=== PATIENT | male | born 1950 | race Caucasian/White ===

== ENCOUNTER 2018-05-28 09:27 | Day surgery (SDC) | payer MEDICARE ==
[2018-05-24 13:04] VITALS: BMI 31.8
[2018-05-28] MEDS ORDERED: PROPOFOL 200 MG/20 ML VIAL ONE (12:51)
[2018-05-28] MEDS ORDERED: Lidocaine 1% PF 5 ML VIAL ONE (12:51)
[2018-05-28] MEDS ORDERED: Ondansetron HCl/PF 4 MG/2 ML Vial ONE (12:51)
[2018-05-28] MEDS ORDERED: Ketorolac Tromethamine 30 MG/ML VIAL ONE (12:51)
[2018-05-28] MEDS ORDERED: Betamet Acet/Betamet Na Ph 30 MG/5 ML VIAL ONE (12:59)
[2018-05-28] MEDS ORDERED: Bacitracin Zinc Ointment 30 gm TUBE ONE (12:59)
[2018-05-28] MEDS ORDERED: Bupivacaine PF 0.5% 30 ML VIAL ONE (12:59)
[2018-05-28] MEDS ORDERED: Propofol 500 MG/50 ML VIAL ONE (13:16)
[2018-05-28] MEDS ORDERED: Midazolam HCl 2 mg/2 ml Vial ONE (13:16)
[2018-05-28] MEDS ORDERED: Fentanyl 100 MCG/2 ML VIAL ONE (13:16)
--- NOTE | 2018-05-29 08:36 | OP ---
DATE OF PROCEDURE: 05/28/2018 PREOPERATIVE DIAGNOSIS: Left ring finger A1 james tenosynovitis with trigger finger, left ring fing er. POSTOPERATIVE DIAGNOSIS: Left ring finger A1 james tenosynovitis with trigger finger, left ring fin franki. FINDINGS: Very thick ____ over the flexor tendon to the ring finger, digitorum profundus and superfi cialis, and very thick A1 james. Minimal tenosynovitis. PROCEDURE PERFORMED: A1 james release, left ring finger. TOURNIQUET TIME: 11 minutes. ESTIMATED BLOOD LOSS: Less than 5 mL INJECTABLE: Yes, 3 mL of Celestone into the area around the tendon. COMPLICATIONS: None. INDICATIONS: The patient failed conservative treatment. ANESTHESIA: JENNIFER Hui, [place] Anesthesia with use of propofol and a total of 15 mL of metacarp ophalangeal joint palmar level block, 10 given before the surgery and 5 after, 0.5% Marcaine, no epin ephrine. DESCRIPTION OF PROCEDURE: Anesthesia given prior to prep and drape. Timeout was accomplished. The patient had the limb exsanguinated, tourniquet inflated to 250 mmHg pressure, and a zigzag incisi on outlined 1 cm long centered over the A1 james/palm MP joint flexion crease. This was carried to skin and subcutaneous tissue, identified neurovascular bundles on the radioulnar side and retracted f rom the center of the field. The very thick ____ over the tendon was released just proximal A1 pulle y. A1 james was visualized, released in the midline with a [place] blade. We lifted up the tendon, there was minimal soft tissue swelling, and no true thickened tenosynovitis, so, no tenosynovectomy w as indicated or done. We released the tourniquet and obtained hemostasis, placed 3 mL of Celestone along the tendon at the level of the A1 james and closed with interrupted 4-0 nylon in mattress pattern. Bulky dressing was applied, and the patient left the operating room without evidence of anesthetic or operative complic ation.
== END 2018-05-28 17:15 | disposition home or self-care (01) ==
LOC: SDC 09:27
PROVIDERS: ATTEND Orthopaedic Surgery Hand Surgery
PROC: 0LN80ZZ Release Left Hand Tendon, Open Approach (ICD-10-PCS; principal; 2018-05-28)
DX: M65.342 Trigger finger, left ring finger (principal); Z79.84 Long term (current) use of oral hypoglycemic drugs; Z79.899 Other long term (current) drug therapy
CPT/HCPCS: J0702; J1885; J2001; J2250; J2405; J2704; J3010; S0020

== ENCOUNTER 2020-01-23 06:52 | Outpatient (CLI) | payer MEDICARE, OTHER ==
[2020-01-23 10:20] LABS: #Basophils 0.1 thou/uL (0.0-0.2); #Eosinphils 0.2 thou/uL (0.0-0.7); #Lymphocytes 2.9 thou/uL (1.20-3.40); #Monocytes 0.5 thou/uL (0.11-0.59); #Neutrophils 4.5 thou/uL (1.40-6.50); %Basophils 1.6 % (0.0-1.0); %Eosinophils 2.6 % (0.0-10.0); %Lymphocytes 35.1 % (21.0-51.0); %Monocytes 6.4 % (0.0-10.0); %Neutrophils 54.4 % (42.0-75.0); Mean Corpuscular Hemoglobin 31.6 pg (27.0-31.0); Mean Corpuscular Volume 92.9 fL (78.0-98.0); Mean Platelet Volume 8.7 fL (7.4-10.4); Platelet Count 269 thou/uL (130-400); RBC Distribution Width 12.9 % (11.5-14.5); Red Blood Cell (RBC) Count 4.76 mill/uL (4.70-6.10); White Blood Cell (WBC) Count 8.3 thou/uL (4.8-10.8)
[2020-01-23 10:47] LABS: Bacteria/HPF None Seen HPF (None Seen); Bilirubin Negative (Negative); Blood, Urine Negative (Negative); Clarity Clear (Clear); Glucose, Urine (Dipstick) Normal (Negative); Leukocyte Negative Leu/uL (Negative); Nitrite Negative (Negative); Protein, Urine (Dipstick) Negative (Neg-Trace); RBC/HPF 0-3 HPF (0-3); Squamous Epithelial None Seen HPF (0-3); Urobilinogen Normal mg/dL (Less than 2); WBC/HPF 0-3 HPF (0-3)
[2020-01-23 18:07] LABS: SARS-CoV-2 MS2 Positive; SARS-CoV-2 N Gene Negative; SARS-CoV-2 S Gene Negative; SARS-CoV-2 orf1ab Negative
== END 2020-01-23 06:53 | disposition home or self-care (01) ==
LOC: LABBT 06:52
PROVIDERS: ATTEND Orthopaedic Surgery Hand Surgery
DX: Z01.818 Encounter for other preprocedural examination (principal); Z11.59 Encounter for screening for other viral diseases; M65.332 Trigger finger, left middle finger
CPT/HCPCS: 81001; 85025; 93005; U0003; 87635; 93010

== ENCOUNTER 2020-01-27 05:45 | Day surgery (SDC) | payer MEDICARE ==
[2020-01-23 08:43] VITALS: BMI 31.6
[2020-01-27] MEDS ORDERED: Fentanyl 100 MCG/2 ML VIAL ONE (06:20)
[2020-01-27] MEDS ORDERED: Betamet Acet/Betamet Na Ph 30 MG/5 ML VIAL ONE (06:46)
[2020-01-27] MEDS ORDERED: Bacitracin Zinc Ointment 30 gm TUBE ONE (06:46)
[2020-01-27] MEDS ORDERED: Bupivacaine PF 0.5% 30 ML VIAL ONE (06:46)
[2020-01-27] MEDS ORDERED: Ketorolac Tromethamine 30 MG/ML VIAL ONE (08:25)
[2020-01-27] MEDS ORDERED: Ondansetron PF 4 MG/2 ML Vial ONE (09:27)
[2020-01-27] MEDS ORDERED: Lidocaine 1% PF 5 ML VIAL ONE (09:27)
[2020-01-27] MEDS ORDERED: PROPOFOL 200 MG/20 ML VIAL ONE (09:27)
--- NOTE | 2020-01-27 10:03 | OP ---
DATE OF PROCEDURE: 01/27/2020 PREOPERATIVE DIAGNOSES: 1. Left middle finger trigger digit. 2. Diabetes. POSTOPERATIVE DIAGNOSES: 1. Left middle finger trigger digit. 2. Diabetes. FINDINGS: Thickened A1 james, left middle finger with only minimal flexor tenosynovitis. PROCEDURES PERFORMED: Left middle finger trigger digit release. SPECIMEN REMOVED: None. TOURNIQUET TIME: 14 minutes. ESTIMATED BLOOD LOSS: 5 mL. COMPLICATIONS: None. DESCRIPTION OF PROCEDURE: After successful general endotracheal anesthesia, the limb was prepped and draped. Immediately given 10 mL of 0.5% Marcaine block in the area of outlined longitudinal V incision just radial to the middle of the middle finger ray. We carried through skin and subcutaneous tissue, dissected down. There was marked thickening of the palmar fascia, which was released, found the digital neurovascular bundle and protected it on both sides of the tendon. We then saw the A1 james. It was thickened, there was thickening of the tendon sheath and we released the A1 james in the midline under direct visualization using [place] blade. We then lifted up the tendons, there was not enough tenosynovial swelling afterwards to do a synovectomy, there was no ganglion or other mass deep on the dorsal aspect of the tendon and the james. We irrigated the area, released the tourniquet after placing Celestone in the wound and obtained hemostasis. We closed the wound with interrupted 4-0 nylon in a mattress pattern and the patient left the operating room in a soft dressing with no evidence of anesthetic or operative complication. Job ID: [id number]
== END 2020-01-27 10:45 | disposition home or self-care (01) ==
LOC: SDC 05:45
PROVIDERS: ATTEND Orthopaedic Surgery Hand Surgery
PROC: 0LN80ZZ Release Left Hand Tendon, Open Approach (ICD-10-PCS; principal; 2020-01-27)
DX: M65.332 Trigger finger, left middle finger (principal); M25.732 Osteophyte, left wrist; E11.9 Type 2 diabetes mellitus without complications; E78.5 Hyperlipidemia, unspecified; I10 Essential (primary) hypertension; G47.30 Sleep apnea, unspecified; N52.9 Male erectile dysfunction, unspecified; E66.9 Obesity, unspecified; Z68.31 Body mass index [BMI] 31.0-31.9, adult; Z79.84 Long term (current) use of oral hypoglycemic drugs; Z79.899 Other long term (current) drug therapy; Z97.4 Presence of external hearing-aid
CPT/HCPCS: J0690; J0702; J1885; J2001; J2405; J2704; J3010; J3370; S0020

== ENCOUNTER 2022-06-08 08:06 | Outpatient (CLI) | payer MEDICARE, OTHER | END 2022-06-08 08:07 | disposition home or self-care (01) | LOC: TBSIIMAG 08:06 | PROVIDERS: ATTEND Urology | DX: C61 Malignant neoplasm of prostate (principal) | CPT/HCPCS: 72197 ==

== ENCOUNTER 2022-07-20 11:19 | Outpatient (CLI) | payer MEDICARE, OTHER ==
[2022-07-20 12:36] LABS: Bilirubin Neg (Negative); Blood, Urine 10 (Negative); Glucose, Urine (Dipstick) Normal (Negative); Ketone, Urine Negative (Negative); Leukocyte Negative (Negative); Nitrite Negative (Negative); Protein, Urine (Dipstick) Negative (Neg-Trace); Specific Gravity, Urine 1.015 (1.005-1.030); Urobilinogen Normal mg/dL (Less than 2)
[2022-07-20 13:05] LABS: INR-International Normal Ratio 1.1; PTT 28.5 sec (22.0-33.0); Prothrombin Time 11.8 sec (9.5-12.1)
[2022-07-20 13:51] LABS: Clarity Clear (Clear)
[2022-07-20 13:59] LABS: RBC/HPF 0-3 HPF (0-3)
[2022-07-20 14:00] LABS: Bacteria/HPF None Seen HPF (None Seen); Squamous Epithelial None Seen HPF (0-3); WBC/HPF None Seen HPF (0-3)
== END 2022-07-20 11:20 | disposition home or self-care (01) ==
LOC: LABBT 11:19
PROVIDERS: ATTEND Urology
DX: Z01.818 Encounter for other preprocedural examination (principal); C61 Malignant neoplasm of prostate; N40.1 Benign prostatic hyperplasia with lower urinary tract symptoms; N21.0 Calculus in bladder; R97.20 Elevated prostate specific antigen [PSA]; K42.9 Umbilical hernia without obstruction or gangrene; I86.1 Scrotal varices; R39.11 Hesitancy of micturition; N52.9 Male erectile dysfunction, unspecified; E11.9 Type 2 diabetes mellitus without complications; I10 Essential (primary) hypertension
CPT/HCPCS: 81001; 85610; 85730; 87086; 93005; 93010

== ENCOUNTER 2022-08-02 06:26 | Day surgery (SDC) | payer MEDICARE, OTHER ==
[2022-08-01 10:51] VITALS: BMI 27.9
[2022-08-02] MEDS ORDERED: FENTANYL 50 MCG/ML 1 ML VIAL ONE ×3 (08:18→09:58)
[2022-08-02] MEDS ORDERED: Levofloxacin 500 mg/D5W 100 ml Premix Bag ONE (08:20)
[2022-08-02] MEDS ORDERED: PROPOFOL 200 MG/20 ML VIAL ONE (08:25)
[2022-08-02] MEDS ORDERED: NEOSTIGMINE 3 MG/3 ML SYR 3 MG/3 ML SYRINGE ONE (08:25)
[2022-08-02] MEDS ORDERED: Succinylcholine Chloride 100 MG/5 ML SYRINGE FS ONE (08:25)
[2022-08-02] MEDS ORDERED: GLYCOPYRROLATE/PF 0.2 MG/ML VIAL ONE (08:25)
[2022-08-02] MEDS ORDERED: Dexamethasone 20 MG/5 ML VIAL ONE (08:25)
[2022-08-02] MEDS ORDERED: Ondansetron PF 4 MG/2 ML Vial ONE ×2 (08:25→11:31)
[2022-08-02] MEDS ORDERED: Rocuronium Bromide 10 MG/ML (10ML VIAL) ONE (08:25)
[2022-08-02] MEDS ORDERED: Hyoscyamine Sulfate SL 0.125 mg Tablet ONE (08:58)
[2022-08-02] MEDS ORDERED: Phenazopyridine HCl 100 MG TAB ONE (09:56)
[2022-08-02] MEDS ORDERED: Promethazine HCl 25 MG/ML VIAL ONE (11:44)
== END 2022-08-02 15:05 | disposition home or self-care (01) ==
LOC: SDC 06:26
PROVIDERS: ATTEND Urology
PROC: 0TCB8ZZ Extirpation of Matter from Bladder, Via Natural or Artificial Opening Endoscopic (ICD-10-PCS; principal; 2022-08-02)
DX: N21.0 Calculus in bladder (principal); N40.0 Benign prostatic hyperplasia without lower urinary tract symptoms; C61 Malignant neoplasm of prostate; N20.0 Calculus of kidney; Z79.84 Long term (current) use of oral hypoglycemic drugs; Z79.899 Other long term (current) drug therapy
CPT/HCPCS: 52318; 74018; 82365; J3010; 88300; A4311; J1956; J2405; J2550

== ENCOUNTER 2022-09-13 09:59 | Outpatient (CLI) | payer MEDICARE, OTHER | END 2022-09-13 10:00 | disposition home or self-care (01) | LOC: BICCT 09:59 | PROVIDERS: ATTEND Urology | DX: N21.0 Calculus in bladder (principal); C61 Malignant neoplasm of prostate | CPT/HCPCS: 72192 ==